=== PATIENT | female | born 1990 | race Caucasian/White ===

== ENCOUNTER 2021-09-14 17:29 | Emergency (ER) | payer MEDICAID ==
[2021-09-14] MEDS ORDERED: Aspirin 81 MG Tab.Chew PO ONE (17:56)
[2021-09-14] MEDS ORDERED: Sodium Chloride 0.9% 10 ML Syringe FLUSH PRN (17:56)
[2021-09-14] MEDS ORDERED: Famotidine 20 MG/2 ML SDV IVPUSH ONE (17:58)
[2021-09-14] MEDS ORDERED: HYDROmorphone 0.5 MG/0.5 ML Syringe IVPUSH ONE (17:58)
== END 2021-09-14 19:51 | disposition home or self-care (01) ==
LOC: JD.ED 17:29
DX: R07.89 Other chest pain (principal); F17.210 Nicotine dependence, cigarettes, uncomplicated; Z79.899 Other long term (current) drug therapy; Z88.5 Allergy status to narcotic agent
CPT/HCPCS: 36415; 71045; 80053; 84484; 85025; 85379; 93005; 96374; 96375; 99285; A9270; J1170; J3490

== ENCOUNTER 2021-09-27 14:39 | Emergency (ER) | payer MEDICAID ==
[2021-09-27] MEDS ORDERED: Sodium Chloride 0.9% 10 ML Syringe FLUSH PRN (15:23)
[2021-09-27] MEDS ORDERED: Sodium Chloride 0.9% 1,000 ML IV ONE (15:24)
== END 2021-09-27 18:20 | disposition home or self-care (01) ==
LOC: JD.ED 14:39
DX: F10.10 Alcohol abuse, uncomplicated (principal); Z88.5 Allergy status to narcotic agent; Z86.16 Personal history of COVID-19; Z72.0 Tobacco use; Y90.1 Blood alcohol level of 20-39 mg/100 ml
CPT/HCPCS: 36415; 80053; 80307; 85025; 96360; 99284; J3490; J7030

== ENCOUNTER 2021-12-15 12:18 | Emergency (ER) | payer MEDICAID | END 2021-12-15 15:50 | disposition home or self-care (01) | LOC: JD.ED 12:18 | DX: B34.9 Viral infection, unspecified (principal); Z88.5 Allergy status to narcotic agent; Z28.310 Unvaccinated for COVID-19; Z86.16 Personal history of COVID-19 | CPT/HCPCS: 99283; U0002 ==